=== PATIENT | male | born 1980 | race American Indian/Alaskan Native ===

== ENCOUNTER 2024-09-12 21:36 | Emergency (ER) | payer OTHER ==
[~2024-09-12] VITALS: Ht 180.3 cm; Wt 108.4 kg
[2024-09-12 21:41] VITALS: PULSE 70; RESP 18; TEMP 99
[2024-09-12] MEDS: KETOROLAC TROMETHAMINE 60 MG/2 ML VIAL IM ONE (22:20)
[2024-09-13 00:06] VITALS: BP 139/91; PULSE 70; RESP 18; TEMP 99; O2SAT 99
== END 2024-09-13 00:06 | disposition home or self-care (01) ==
LOC: FSED 21:58
DX: M25.521 Pain in right elbow (principal); S50.01XA Contusion of right elbow, initial encounter; W01.198A Fall on same level from slipping, tripping and stumbling with subsequent striking against other object, initial encounter; Y92.89 Other specified places as the place of occurrence of the external cause
CPT/HCPCS: 29240; 73080; 96372; 99283; J1885